=== PATIENT | female | born 1950 | race Caucasian/White ===

== ENCOUNTER 2016-12-03 16:45 | Emergency (ER) | payer MEDICARE, OTHER ==
[~2016-12-03] VITALS: Ht 162.6 cm; Wt 75.0 kg
[~2016-12-03 16:45] MED LIST: ALEN70SO3 PO; CALC-337 PO; MULT-378 PO; OMEG-135 PO; OMEP40CA6 PO; SIMV20TA2 PO; ZOC10
[2016-12-03 17:17] VITALS: Ht 162.6 cm; Wt 75.0 kg
[2016-12-03] MEDS ORDERED: IBUP-1542 PO (20:07)
--- NOTE | 2016-12-03 20:16 | ERD ---
ER Documentation Chief Complaint Date/Time DATE: 12/03/16 TIME: 20:09 Chief Complaint left hip pain and right foot pain s/p slip fall today HPI 66-year-old female complaining of pain in her left hip, right knee, and right big toe after slip and fall I home earlier today. Patient stated that she was cleaning house when she slipped on the wet floor. She was walking down the stairs at that time, and slid on the last step, and fell forward. She did not hit her head in the fall. She reports bruising in the right big toe, slight pain in the right knee, and left hip. She is able to bear weight after the fall. She has a history of left hip replacement, she is concerned about the left hip from the fall. Denies any other injuries. ROS All systems reviewed and are negative except as per history of present illness. Medications Home Meds Active Scripts Ibuprofen* (Motrin*) 600 Mg Tab, 600 MG PO Q6H Y for PAIN AND OR ELEVATED TEMP, #30 TAB Prov:SULMA CUMMINGS MOMD TEACHER 12/03/16 Reported Medications Omeprazole* (Omeprazole*) 40 Mg Capsule.dr, 40 MG PO DAILY, CAP 01/23/14 Calcium Carbonate-Vitamin D3 (Calcium 250 + D Tablet) 1 Tab Tablet, 1 TAB PO DAILY 01/23/14 Fish Oil* (Fish Oil*) 1,000 Mg Cap, 1000 MG PO DAILY, CAP 01/23/14 Simvastatin (Simvastatin) 20 Mg Tablet, 20 MG PO HS, TAB 01/23/14 Multivit, Iron, Min No. 8, Fa (Therapeutic-M Caplet) 1 Each Tablet, 1 EACH PO DAILY 01/23/14 Alendronate Sodium* (Alendronate Sodium* Liq) 70 Mg/75 Ml Solution, 70 MG PO WEEKLY, ML 01/23/14 Simvastatin (Simvastatin) 10 Mg Tablet 05/26/10 Allergies Allergies: Coded Allergies: No Known Drug Allergies (Unverified Allergy, Unknown, 12/03/16) Uncoded Allergies: NKDA (Allergy, Mild, 05/26/10) PMhx/Soc History of Surgery: Yes (C SECTION, L HIP REPLACEMENT, HYSTERECTOMY) Anesthesia Reaction: No Hx Neurological Disorder: No Hx Respiratory Disorders: No Hx Cardiac Disorders: Yes (HIGH CHOL) Hx Psychiatric Problems: Yes Hx Miscellaneous Medical Probl: No Hx Alcohol Use: No Hx Substance Use: No Hx Tobacco Use: No Smoking Status: Unknown if ever smoked Physical Exam Vitals Vital Signs Date Time Temp Pulse Resp B/P Pulse Ox O2 Delivery O2 Flow Rate FiO2 12/03/16 17:17 98.9 90 18 129/78 96 Physical Exam General impression: Well-developed, well-nourished. Alert, oriented, in no acute distress Head: Normocephalic, atraumatic. Eyes: PERRL, EOM normal. Sclerae are normal. Conjunctiva not injected. Neck: Supple, nontender. No lymphadenopathy. No nuchal rigidity. Respiration: Normal respiratory effort. Lungs clear to auscultate bilaterally. No wheezes, rales or rhonchi. Cardiovascular: Regular rate and rhythm. No murmurs or extra heart sounds. Abdomen: Abdomen normal to inspection. Nontender. No masses or organomegaly. Bowel sounds normal. Back: Normal to inspection. No midline spine tenderness. No CVA tenderness. Extremities: Ecchymosis noted in the right big toe, tender. Mild tenderness of the right knee, normal range of motion, neurovascularly intact. No tenderness over the left hip joint, tenderness to palpation at the left gluteal region. Neuro: Mental status normal, speech normal. CULINARY INTERNSHIP grossly intact. Skin: Normal turgor. No rash or lesions. Psych: Normal mood and affect. Procedures/MDM X-ray of the left hip, right knee, and right big toe was obtained. Official reports pending. Preliminary read by Dr. Kaufman showed a nondisplaced avulsion fracture of the base of the distal phalanx of the right big toe, at the lateral aspect. Right knee x-ray has no fractures or dislocations, arthritic changes noted. Left hip x-ray showed hardware of prior hip replacement in place, no dislocation. The area of injury was immobilized with a duane tape splint. Patient was noted to be comfortable and neurovascularly intact both before and after the immobilization. Patient appears well, stable for discharge and outpatient management. Medical decision making shared with patient and family. Education provided to patient and family. Patient and family expressed understanding of the plan. Medications on discharge: Ibuprofen. Follow-up: Primary care provider in 2-3 days or return to ED if worse. Departure Diagnosis: Primary Impression: Fracture of toe of right foot Encounter type: initial encounter Toe: great toe Fracture type: closed Phalanx: distal Fracture alignment: nondisplaced Qualified Code: S92.424A - Closed nondisplaced fracture of distal phalanx of right great toe, initial encounter Condition: Good Patient Instructions: Fracture, Toe [Closed] Referrals: DOCTOR,NOT ON STAFF (PCP) [facility] ([facility]) Usted se john hecho un examen mdico de control que le indica que no est en saurav condicin que requiera tratamiento urgente en el Departamento de Emergencia. Un estudio ms profundo y el tratamiento de vazquez condicin pueden esperar sin ningn riesgo hasta que usted sea atendida/o en el consultorio de vazquez mdico o saurav cl neha. Es responsabilidad suya arreglar saurav wendi para el seguimiento del sultana. MANEJO DE CONDICIONES NO URGENTES EN EL FUTURO 1) Si usted tiene un mdico de atencin primaria: Usted debera llamar a vazquez mdico de atencin primaria antes de venir al departamento de emergencia. Despus de las horas de consultorio, vazquez doctor o vazquez asociado/a est disponible por telfono. El mdico o enfermero de thien en el servicio telefnico puede asesorarle por yanci medio para atender el problema, o sultana contrario se puede programar saurav wendi. 2) Si usted no tiene un mdico de atencin primaria: Llame al mdico o clnica de referencia que aparece abajo omar las horas de consultorio para hacer saurav wendi para que le vean. CLINICAS: [facility] [phone] [facility] [phone] [facility] [phone] [facility] [phone] [facility] [phone] [facility] [phone] [address] Additional Instructions: Llame al doctor nombrado abajo (Referral Sources) MAANA y pinky saurav WENDI PARA DENTRO DE SAURAV SEMANA. Dgale a la secretaria que nosotros le instruimos hacer esta wendi.Avise o llame si vazquez condicin se empeora antes de la wendi. SULMA CUMMINGS. GIANNA Dec 03, 2016 20:16
--- NOTE | 2016-12-03 20:31 | RADRPT ---
PROCEDURE: XR right tos. CLINICAL INDICATION: Status post fall. Pain. TECHNIQUE: Three views of the right first are available for review COMPARISON: No prior studies are available for comparison. FINDINGS: There is a minimally displaced intra-articular fracture of the lateral aspect of the proximal aspect of the distal phalanx of the first digit. No other fractures identified. Joint relationships are maintained. Bone mineralization is within normal limits. Soft tissues unremarkable. IMPRESSION: Minimally displaced intra-articular fracture of the proximal aspect distal phalanx of the of the fir st digit of the right foot. RPTAT: HMVK .Jerson Kennedy MD, Date Time Electronically viewed and signed by .Jerson Kennedy MD, on 12/03/2016 20:30 .K/
--- NOTE | 2016-12-03 20:44 | RADRPT ---
PROCEDURE: XR Knee. CLINICAL INDICATION: Trauma. Pain.. TECHNIQUE: Three views of the right knee are available for review. COMPARISON: None available FINDINGS: There is no fracture. Joint relationships are maintained. Bone mineralization is within normal ramirez its. A suprapatellar joint effusion is likely. Soft tissues are otherwise unremarkable. IMPRESSION: 1. Probable suprapatellar joint effusion. 2. No acute fracture or dislocation is seen. RPTAT: HMVK .Jerson Kennedy MD, MD Date Time Electronically viewed and signed by .Jerson Kennedy MD, on 12/03/2016 20:43 .K/
--- NOTE | 2016-12-03 20:53 | RADRPT ---
PROCEDURE: XR Hip. CLINICAL INDICATION: Trauma. Pain. TECHNIQUE: Two views of the left hip were performed. COMPARISON: None. FINDINGS: Bones are severely osteopenic. There is extensive metal hardware. There is bipolar hip arthroplast y. Femoral intramedullary component of surrounding cerclage wires. There is a metal side plates wi th interosseous screws transfixing the greater trochanter. There are multiple metal plates transfix ing the left superior pubic ramus , acetabulum and iliac wing. There is no dislocation of the hip a rthroplasty. There is deformity of the left inferior pubic ramus consistent with a age indeterminat e fracture. There is a heterotropic ossification between the greater trochanter and adjacent pelvis. Soft tissues unremarkable. IMPRESSION: Status post extensive left amada pelvis and hip open reduction and internal fixation with hip bipolar arthroplasty in hardware described above. No dislocation of the left hip arthroplasty. Severe ost eopenia. Age indeterminate fracture of the left inferior pubic ramus. RPTAT: HMVK .Jerson Kennedy MD, Date Time Electronically viewed and signed by .Jerson Kennedy MD, on 12/03/2016 20:53 .K/
== END 2016-12-03 20:16 | disposition home or self-care (01) ==
LOC: FTE 16:45
DX: S92.424A Nondisplaced fracture of distal phalanx of right great toe, initial encounter for closed fracture (principal); W01.0XXA Fall on same level from slipping, tripping and stumbling without subsequent striking against object, initial encounter; Y92.009 Unspecified place in unspecified non-institutional (private) residence as the place of occurrence of the external cause; Z96.642 Presence of left artificial hip joint
CPT/HCPCS: 73510; 73562; 73660

== ENCOUNTER 2017-04-05 13:20 | Day surgery (SDC) | payer OTHER ==
[~2017-04-05] VITALS: Ht 160 cm; Wt 74.6 kg
[~2017-04-05 13:20] MED LIST changes: +IBUP-1542 PO
[2017-04-05 14:13] VITALS: Ht 160 cm; Wt 74.6 kg
[2017-04-05] MEDS ORDERED: eye drops BOTH EYES (14:23)
[2017-04-05 14:50] VITALS: BP 129/60; PULSE 70; RESP 12
[2017-04-05] MEDS ORDERED: LIDOCAINE 4% SOLUTION 50 ML BTL ONE (15:12)
--- NOTE | 2017-04-05 15:32 | OPPN ---
Date/Time of Note Date/Time of Note DATE: 04/05/17 TIME: 15:31 Operative Report Preoperative Diagnosis OCCULT BLEEDING/AVM Postoperative Diagnosis GASTROPATHY Operation/Procedure Performed EGD Provider: BEATRIZ YEH MD Anesthesia Type: moderate sedation Transfusion Required: no Specimen: none Grafts/Implants: none Complications: no BEATRIZ YEH MD Apr 05, 2017 15:32
[2017-04-05] MEDS ORDERED: MIDAZOLAM 1 MG/ML 2 ML INJ ONE ×2 (15:41)
[2017-04-05] MEDS ORDERED: FENTAnyl 50 MCG/ML VIAL ONE (15:41)
--- NOTE | 2017-04-05 19:12 | GILP ---
DATE OF PROCEDURE: 04/05/2017 PREOPERATIVE DIAGNOSIS: Rectal bleeding, history of AVMs. PROCEDURE PERFORMED: Procedure EGD. INDICATIONS FOR PROCEDURE: Possible APC coagulation. POSTOPERATIVE DIAGNOSIS: Gastropathy. No active bleeding. No evidence of AVMs in the upper GI tract. DESCRIPTION OF PROCEDURE: The patient was put in left lateral decubitus position after obtaining informed consent. He was sedated, monitored oximetry, EKG, blood pressure. 2 mg IV Versed and 50 mcg of fentanyl were given. Posterior pharynx anesthetized with 4 percent xylocaine. Very carefully advanced a Olympus video upper endoscope into the esophagus, stomach and duodenum. Thorough examination of the entire upper GI tract showed normal esophagus, mild gastropathy in the fundus and body of the stomach and a thorough search was done for AVMs not found, duodenum up to 3rd part, unremarkable. Scope was withdrawn. The patient will be sent home. Probably follow up as outpatient for terminal ileoscopy if possible to do the AVM in the terminal ilium that was also seen in the past with outpatient. Dictated By: Edin Martinez MD /araceli/pauly /Document#: [id number] ; Dr. Emeterio Gifford
== END 2017-04-05 17:01 | disposition home or self-care (01) ==
LOC: GIL 13:20
PROVIDERS: ATTEND Internal Medicine
DX: K31.9 Disease of stomach and duodenum, unspecified (principal); K62.5 Hemorrhage of anus and rectum
CPT/HCPCS: 43235; J2250; J3010

== ENCOUNTER 2017-07-26 13:14 | Day surgery (SDC) | payer OTHER ==
[~2017-07-26] VITALS: Ht 160 cm; Wt 70.4 kg
[~2017-07-26 13:14] MED LIST changes: -IBUP-1542 PO; -MULT-378 PO; -OMEG-135 PO; -OMEP40CA6 PO; -SIMV20TA2 PO; -ZOC10; +eye drops BOTH EYES
[2017-07-26 13:57] VITALS: Ht 160 cm; Wt 70.4 kg
[2017-07-26 14:22] VITALS: BP 136/85; PULSE 68; RESP 15
--- NOTE | 2017-07-26 14:57 | OPPN ---
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
[2017-07-26] MEDS ORDERED: MIDAZOLAM 1 MG/ML 2 ML INJ ONE ×2 (14:59)
[2017-07-26] MEDS ORDERED: FENTAnyl 50 MCG/ML VIAL ONE (14:59)
--- NOTE | 2017-07-27 06:06 | GILP ---
DATE OF PROCEDURE: PREOPERATIVE DIAGNOSIS: Occult bleeding. PROCEDURE DONE: Colonoscopy. POSTOPERATIVE DIAGNOSIS: Diverticulosis, mild in the left colon, otherwise normal colon. DESCRIPTION OF PROCEDURE: The patient was put in left lateral decubitus after obtaining informed co nsent. She was sedated with 4 mg IV Versed, 100 mcg of fentanyl, monitored oximetry, EKG, blood pre ssure. Rectal exam done. Advanced the Olympus video colonoscope all the way to cecum. Ileocecal valve, ap pendiceal opening identified. Cecum, ascending colon, transverse colon normal. Descending colon, s igmoid colon, few small diverticula noted and the rectum, including retroflexion, is normal. Upon r emoval of scope, patient had no complication. PLAN: Will be to observe and repeat colonoscopy in 10 years. If occult bleeding continues, small b owel series or capsule enteroscopy and follow the H and H also. Dictated By: BEATRIZ SILVER Conf#: [id number] DID#: [id number] CC: Emeterio Gifford;*EndCC*
== END 2017-07-26 20:58 | disposition home or self-care (01) ==
LOC: GIL 13:14
PROVIDERS: ATTEND Internal Medicine
DX: K92.1 Melena (principal); K57.90 Diverticulosis of intestine, part unspecified, without perforation or abscess without bleeding
CPT/HCPCS: 45378; J2250; J3010

== ENCOUNTER 2017-08-16 19:35 | Emergency (ER) | END 2017-08-16 23:33 | disposition home or self-care (01) ==

== ENCOUNTER → 2017-11-01 | Outpatient (CLI) | END | disposition home or self-care (01) ==